=== PATIENT | male | born 1965 | race African-American/Black ===

== ENCOUNTER 2021-07-10 21:31 | Emergency (ER) | payer MEDICAID, OTHER ==
[~2021-07-10] VITALS: Ht 172.7 cm; Wt 97.5 kg
[2021-07-10 21:47] VITALS: BP 176/128
[2021-07-10] MEDS ORDERED: cloNIDine HCL 0.1 MG TAB PO ONE (22:00)
== END 2021-07-11 02:48 | disposition home or self-care (01) ==
LOC: ER 21:32
DX: J18.9 Pneumonia, unspecified organism (principal); Z20.822 Contact with and (suspected) exposure to COVID-19
CPT/HCPCS: 36415; 71045; 87426; 93005

== ENCOUNTER 2024-09-24 20:13 | Emergency (ER) | payer MEDICAID ==
[~2024-09-24] VITALS: Ht 172.7 cm; Wt 92.5 kg
--- NOTE | 2024-09-24 21:05 | ED.PDOC ---
Back pain HPI HPI Comments 59-year-old male with PMHx HTN presents with a chief complaint of back pain x 3 days. Patient states that his back pain is localized to his lumbar region, radiates down bilaterally to his buttocks and thighs. Patient describes pain as sharp, and is exacerbated when attempting to walk. Patient reports that he cannot stand up with pain hurting him. Chief Complaint: Back Pain Time Seen by MD: 20:56 Reviewed Notes: Medications, Allergies Allergies: Coded Allergies: NO KNOWN ALLERGIES (Unverified , 07/10/21) Home Meds Active Scripts Gabapentin (Once-Daily) (Gabapentin) 300 Mg Tab, 300 MG PO Q6HP PRN for 20 Days, #60 TAB Prov:SADAF HOLDER MD 09/24/24 Hydralazine Hcl (Hydralazine Hcl) 50 Mg Tab, 1 TAB PO BID for 90 Days, #180 TAB 3 Refills Prov:SADAF HOLDER MD 09/24/24 Meloxicam (Meloxicam) 7.5 Mg Tab, 1 TAB PO DAILY PRN for 20 Days, #20 TAB 2 Refills Prov:SADAF HOLDER MD 09/24/24 Information Source: Patient Mode of Arrival: Wheelchair Timing: Days Duration: Since onset Location of Back pain: (B) Lumbar Radiates to: Posterior: (B) Buttocks, (B) Thigh Severity: Moderate Prehospital treatment: None Quality: Sharp Onset: Spontaneous History of: Chronic Back Pain Modifying Factors: Walking Associated signs and symptoms: None Past Medical History PAST MEDICAL HISTORY: Denies Surgical History: Denies all surgeries Family History Family History: Unknown Social History Smoker: Non-Smoker Alcohol: Denies ETOH Use Drugs: Denies Drug Use Lives In: Home Constitutional: denies: chills, diaphoresis, fatigue, fever, malaise, sweats, weakness, others EENTM: denies: blurred vision, double vision, ear bleeding, ear discharge, ear drainage, ear pain, ear ringing, eye pain, eye redness, hearing loss, mouth pain, mouth swelling, nasal discharge, nose bleeding, nose congestion, nose pain, photophobia, tearing, throat pain, throat swelling, voice changes, others Respiratory: denies: cough, hemoptysis, orthopnea, SOB at rest, shortness of breath, SOB with excertion, stridor, wheezing, others Cardiovascular: denies: chest pain, dizzy spells, diaphoresis, Dyspnea on exertion, edema, irregular heart beat, left arm pain, lightheadedness, palpitations, PND, syncope, others Gastrointestinal: denies: abdomen distended, abdominal pain, blood streaked bowels, constipated, diarrhea, dysphagia, difficulty swallowing, hematemesis, melena, nausea, poor appetite, poor fluid intake, rectal bleeding, rectal pain, vomiting, others Genitourinary: denies: burning, dysuria, flank pain, frequency, hematuria, incontinence, penile discharge, penile sore, pain, testicle pain, testicle swelling, urgency, others Neurological: denies: dizziness, fainting, headache, left sided numbness, left sided weakness, numbness, paresthesia, pre-existing deficit, right sided numbness, right sided weakness, seizure, speech problems, tingling, tremors, weakness, others Musculoskeletal: reports: back pain; denies: gout, joint pain, joint swelling, muscle pain, muscle stiffness, neck pain, others Integumetry: denies: bruises, change in color, change in hair/nails, dryness, laceration, lesions, lumps, rash, wounds, others Allergic/Immunocompromised: denies: Difficulty Healing, Frequent Infections, Hives, Itching, others Hematologic/Lymphatic: denies: anemia, blood clots, easy bleeding, easy bruising, swollen glands, others Endocrine: denies: excessive hunger, excessive sweating, excessive thirst, excessive urination, flushing, intolerance to cold, intolerance to heat, unexplained weight gain, unexplained weight loss, others Psychiatric: denies: anxiety, bipolar disorder, depression, hopeless, panic disorder, schizophrenia, sleepless, suicidal, others All Other Systems: Reviewed and Negative Physical Exam General Appearance: No Apparent Distress, Normal HEENT: Normal ENT Inspection, Pharynx Normal, TMs Normal Neck: Full Range of Motion, Non-Tender, Normal, Normal Inspection Respiratory: Chest Non-Tender, Lungs Clear, No Accessory Muscle Use, No Respiratory Distress, Normal Breath Sounds Cardiovascular: No Edema, No JVD, No Murmur, No Gallop, Normal Peripheral Pulses, Regular Rate/Rhythm Breast Exam: Deferred Gastrointestinal: No Organomegaly, Non Tender, No Pulsatile Mass, Normal Bowel Sounds, Soft Genitalia: Deferred Pelvic: Deferred Rectal: Deferred Extremities: No calf tenderness, Normal capillary refill, Normal inspection, Normal range of motion, Non-tender, No pedal edema Musculoskeletal : Apperance: Normal Neurologic: Alert, rounding machine tender II-XII nml as Tested, No Motor Deficits, Normal Affect, Normal Mood, No Sensory Deficits Cerebellar Function: Normal Reflexes: Normal Skin: Dry, Normal Color, Warm Lymphatic: No Adenopathy Was a procedure done? Was a procedure done?: No Back Pain Differential Dx Differential Diagnosis: AAA, Aortic Dissection, Cholelithiasis, Fracture, Musculoskeletal Pain, Urinary Tract Infection, Urolithiasis X-Ray, Labs, Meds, VS Vital Signs Date Time Temp Pulse Resp B/P (MAP) Pulse Ox O2 Delivery O2 Flow Rate FiO2 09/24/24 22:10 98.0 62 18 160/96 (117) 100 98.0 09/24/24 22:10 62 18 100 Room Air* 0 21 09/24/24 20:47 97.8 63 18 180/102 (128) 96 Current Medications Medications (Trade) Dose Ordered Sig/Radu Route Start Time Stop Time Status Last Admin Ibuprofen (Motrin Tablet) 600 mg ONCE ONCE PO 09/24/24 21:15 09/24/24 21:16 DC 09/24/24 22:00 Time of 1ST Reevaluation: 21:26 Reevaluation 1ST: Unchanged Time of 2ND Reevaluation: 22:00 Reevaluation 2ND: Improved Patient Education/Counseling: Diagnosis, Treatment, Prognosis Family Education/Counseling: No Family Present Departure 1 Departure Time of Disposition: 22:00 Impression: Primary Impression: Sciatica Additional Impression: Back pain Disposition: HOME / SELF CARE / HOMELESS Admit to: Med Surg Condition: Stable e-Prescriptions Gabapentin (Once-Daily) (Gabapentin) 300 Mg Tab 300 MG PO Q6HP PRN for 20 Days, #60 TAB Prov: SADAF HOLDER MD 09/24/24 Hydralazine Hcl (Hydralazine Hcl) 50 Mg Tab 1 TAB PO BID for 90 Days, #180 TAB 3 Refills Prov: SADAF HOLDER MD 09/24/24 Meloxicam (Meloxicam) 7.5 Mg Tab 1 TAB PO DAILY PRN for 20 Days, #20 TAB 2 Refills Prov: SADAF HOLDER MD 09/24/24 Discharged With: Self Critical Care Note Critical Care Time?: No Stability Stability form required: No Heart Score Heart Score: Heart Score Response (Comments) Value History N/A 0 EKG N/A 0 Age N/A 0 Risk Factors N/A 0 Troponin N/A 0 Total 0 I personally scribed for SADAF HOLDER MD ([email or web address]) on 09/24/24 at 21:05. Electronically submitted by Johnathan Reyes ([email or web address]). SADAF HOLDER MD Sep 24, 2024 21:05
--- NOTE | 2024-09-24 21:52 | DVH ---
EXAM: XY LUMBAR SPINE 3 VIEW INDICATION: low back pain / sciatica COMPARISON: None TECHNIQUE: 2 views of the lumbar spine were obtained. Findings: There is no evidence of an acute fracture, spondylolysis, or spondylolisthesis. The vertebral body heights and disc spaces are well-maintained. No blastic or lytic lesions are appreciated. No radiopaque foreign bodies. No superficial soft tissue abnormalities. Impression: 1. No acute osseous abnormality.
[2024-09-24] MEDS ORDERED: MELO7.5T7 PO (21:56)
[2024-09-24] MEDS: hydrALAZINE HCL 25 MG TAB PO ONE (21:56)
[2024-09-24] MEDS ORDERED: HYDR50TA47 PO (21:57)
[2024-09-24] MEDS ORDERED: GABA300T4 PO (21:57)
[2024-09-24] MEDS: IBUPROFEN 600 MG TAB PO ONE (22:00)
[2024-09-24 22:10] VITALS: BP 160/96; PULSE 62; RESP 18; TEMP 98; O2SAT 100
== END 2024-09-24 22:28 | disposition home or self-care (01) ==
LOC: ER 20:13
DX: M54.40 Lumbago with sciatica, unspecified side (principal)
CPT/HCPCS: 72100